=== PATIENT | female | born 1995 | race African-American/Black ===

== ENCOUNTER 2022-09-11 12:20 | Emergency (ER) | payer SELFPAY ==
[~2022-09-11] VITALS: Ht 162.6 cm; Wt 136.1 kg
== END 2022-09-11 15:05 | disposition home or self-care (01) ==
LOC: FSED 12:27
DX: K59.00 Constipation, unspecified (principal); Z88.1 Allergy status to other antibiotic agents
CPT/HCPCS: 99282

== ENCOUNTER 2022-10-08 16:07 | Emergency (ER) | payer SELFPAY ==
[~2022-10-08] VITALS: Ht 167.6 cm; Wt 140.2 kg
[2022-10-08] MEDS ORDERED: AMOXICILLIN875 MG PO (16:37)
[2022-10-08] MEDS ORDERED: CORTISPORIN-TC10 M1 RIGHT EAR (16:37)
== END 2022-10-08 16:46 | disposition home or self-care (01) ==
LOC: FSED 16:22
DX: H60.331 Swimmer's ear, right ear (principal); J30.9 Allergic rhinitis, unspecified
CPT/HCPCS: 99282